=== PATIENT | male | born 2005 | race Caucasian/White ===

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

== ENCOUNTER 2023-01-18 21:44 | Emergency (ER) | payer MEDICAID ==
[~2023-01-18] VITALS: Ht 177.8 cm; Wt 72.7 kg
[~2023-01-18 21:44] MED LIST changes: -ATOM25CA PO; -ESCI10TA PO; -MELA1TAB17 PO; +NO HOME MEDS
--- NOTE | 2023-01-18 22:13 | NUR ---
Neuro exam and BEFAST normal. Patient anxious in triage.Notified PA-C and does not want a CT scan at this time to r/o stroke
[2023-01-18 23:41] VITALS: BP 124/72; PULSE 69; RESP 20; TEMP 97.5; O2SAT 98
== END 2023-01-18 23:46 | disposition home or self-care (01) ==
LOC: ER 21:45
DX: R20.0 Anesthesia of skin (principal); R51.9 Headache, unspecified; R06.02 Shortness of breath; R07.9 Chest pain, unspecified
CPT/HCPCS: 99281

== ENCOUNTER 2023-01-23 18:03 | Emergency (ER) | payer MEDICAID ==
[~2023-01-23] VITALS: Ht 177.8 cm; Wt 70.1 kg
[2023-01-23] MEDS ORDERED: LORazepam 2 mg/ml vial IM ONE (19:10)
[2023-01-23] MEDS ORDERED: BUSP10TA11 PO (19:33)
[2023-01-23 19:55] VITALS: BP 142/81; PULSE 70; RESP 18; TEMP 98.2; O2SAT 98
== END 2023-01-23 20:25 | disposition home or self-care (01) ==
LOC: ER 18:03
DX: F41.0 Panic disorder [episodic paroxysmal anxiety] (principal); F41.9 Anxiety disorder, unspecified; F12.90 Cannabis use, unspecified, uncomplicated; Z88.8 Allergy status to other drugs, medicaments and biological substances; Z79.899 Other long term (current) drug therapy
CPT/HCPCS: 36415; 84484; 93005; 96372; 99284; J2060

== ENCOUNTER 2023-01-27 09:47 | Emergency (ER) | payer MEDICAID ==
[~2023-01-27] VITALS: Ht 177.8 cm; Wt 69.9 kg
[~2023-01-27 09:47] MED LIST changes: +BUSP10TA11 PO
[2023-01-27] MEDS ORDERED: HYDR-3686 PO (11:19)
[2023-01-27 11:51] VITALS: BP 108/68; PULSE 77; TEMP 98.8; O2SAT 100
[2023-01-27 11:54] VITALS: RESP 18
--- NOTE | 2023-01-27 14:48 | NUR ---
I AGREE WITH THE ASSESSMENT PER Armani BRAY LVN.
== END 2023-01-27 11:58 | disposition home or self-care (01) ==
LOC: ER 09:48
DX: F41.9 Anxiety disorder, unspecified (principal); Z88.2 Allergy status to sulfonamides; Z79.899 Other long term (current) drug therapy
CPT/HCPCS: 99283

== ENCOUNTER 2023-05-23 19:39 | Emergency (ER) | payer MEDICAID ==
[~2023-05-23] VITALS: Ht 177.8 cm; Wt 70.0 kg
[~2023-05-23 19:39] MED LIST changes: -BUSP10TA11 PO
[2023-05-23 19:51] VITALS: BP 135/61; PULSE 83; RESP 16; TEMP 98.1; O2SAT 98
== END 2023-05-24 00:13 | disposition left against medical advice (07) ==
LOC: ER 19:40
DX: R07.89 Other chest pain (principal); R06.02 Shortness of breath; Z53.21 Procedure and treatment not carried out due to patient leaving prior to being seen by health care provider
CPT/HCPCS: 93005; 99281

== ENCOUNTER 2023-08-28 23:47 | Emergency (ER) | payer MEDICAID ==
[~2023-08-28] VITALS: Ht 182.9 cm; Wt 52.3 kg
[2023-08-29 00:09] VITALS: BP 144/81; PULSE 99; RESP 20; TEMP 97.9; O2SAT 100
[2023-08-29] MEDS ORDERED: bacitracin 15gm ointment TP ONE (00:20)
== END 2023-08-29 00:38 ==
LOC: ER 23:48
DX: S91.012A Laceration without foreign body, left ankle, initial encounter (principal); F12.90 Cannabis use, unspecified, uncomplicated; Z88.8 Allergy status to other drugs, medicaments and biological substances; X58.XXXA Exposure to other specified factors, initial encounter; Y93.89 Activity, other specified; Y92.89 Other specified places as the place of occurrence of the external cause; Y99.8 Other external cause status
CPT/HCPCS: 99283; A6449